=== PATIENT | male | born 1985 ===

== ENCOUNTER 2021-06-16 18:55 | Emergency (ER) | payer OTHER ==
[~2021-06-16] VITALS: Ht 170.2 cm; Wt 80.7 kg
[2021-06-16] MEDS ORDERED: HYDROCODONE-IB1 EAC1 (19:11)
== END 2021-06-17 00:25 | disposition home or self-care (01) ==
LOC: ER 18:55
DX: E86.0 Dehydration (principal)

== ENCOUNTER 2021-06-19 08:56 | Emergency (ER) | payer OTHER ==
[~2021-06-19] VITALS: Ht 165.1 cm; Wt 80.3 kg
[~2021-06-19 08:56] MED LIST: HYDROCODONE-IB1 EAC1
[2021-06-19] MEDS ORDERED: AZITHROMYCIN500 MG PO (15:10)
[2021-06-19] MEDS ORDERED: COLCHICINE0.6 M1 PO (15:10)
[2021-06-19] MEDS ORDERED: IVERMECTIN3 MG PO (15:10)
[2021-06-19] MEDS ORDERED: LEVSIN0.125 MG PO (15:10)
[2021-06-19] MEDS ORDERED: MELATONIN10 MG PO (15:10)
[2021-06-19] MEDS ORDERED: PEPCID AC20 MG PO (15:10)
[2021-06-19] MEDS ORDERED: INTESTINEX680 M1 PO (15:10)
[2021-06-19] MEDS ORDERED: VITAMIN D3-ALO1 EACH PO (15:10)
[2021-06-19] MEDS ORDERED: MEDROLPACK PO (15:10)
[2021-06-19] MEDS ORDERED: VITAMIN C WIT1000 MG PO (15:10)
[2021-06-19] MEDS ORDERED: MUCINEX DM ER1 EAC1 PO (15:24)
[2021-06-19] MEDS ORDERED: ACETAMINOPHEN650 M2 PO (15:24)
== END 2021-06-19 15:49 | disposition home or self-care (01) ==
LOC: ER 08:56
DX: U07.1 COVID-19 (principal); J12.82 Pneumonia due to coronavirus disease 2019; R07.89 Other chest pain; R10.11 Right upper quadrant pain